=== PATIENT | female | born 1995 | race Caucasian/White ===

== ENCOUNTER 2018-06-28 21:24 | Emergency (ER) | payer OTHER, SELFPAY ==
[2018-06-28 21:35] VITALS: BP 127/73; PULSE 70; RESP 16; TEMP 36.9; O2SAT 100
--- NOTE | 2018-06-28 21:48 | ED.SKABFB ---
HPI - Skin/Abscess/Foreign Bdy General Chief complaint: Skin/Abscess/Foreign Body Stated complaint: hit head on jet, cut Time Seen by Provider: 06/28/18 21:37 Source: patient Mode of arrival: ambulatory Limitations: no limitations History of Present Illness HPI narrative: Otherwise healthy 22-year-old female here for evaluation of scalp laceration. She is active-[employer] and hit her head on a part of the plane. No loss of consciousness. It was bleeding prior to arrival however this has stopped. She is not anything for prior to arrival. Related Data Home Medications Medication Instructions Recorded Confirmed No Known Home Medications 06/28/18 06/28/18 Allergies Allergy/AdvReac Type Severity Reaction Status Date / Time No Known Drug Allergies Allergy Verified 06/28/18 21:38 Review of Systems Constitutional Denies headache(s) Eyes Denies diplopia ENT Ears, Nose, Mouth, and Throat: Denies vertigo, Denies dizziness and Denies headache(s) Integumentary/Breasts Comments: Cut to the scalp Neurologic Denies behavioral changes, Denies vertigo, Denies dizziness and Denies headache(s) Psychiatric Denies behavioral changes Hematologic/Lymphatic Denies easy bleeding and Denies easy bruising PFSH Medical History Healthy adult (Acute) Social History lives independently: Yes Social History lives independently: Yes Exam Initial Vital Signs Initial Vital Signs: Vital Signs Temperature 98.4 F 06/28/18 21:35 Pulse Rate 70 06/28/18 21:35 Respiratory Rate 16 06/28/18 21:35 Blood Pressure 127/73 06/28/18 21:35 Pulse Oximetry 100 06/28/18 21:35 Const General: cooperative, healthy appearing, comfortable, well developed, well groomed and No acute distress HENMT Head: other (2 cm laceration to the scalp) Nose: external nose normal Skin Other: 2 cm laceration to the left parietal/frontal region of the scalp. No active bleeding. Neuro General: alert, awake and oriented x3 Cognition: normal cognition Speech: speech normal Extrem General: capillary refill normal Procedures Laceration Repair Laceration 1: Site: scalp Side (If applicable): left Size (cm): 2 Description: linear Depth: simple, single layer Local Anesthetic: lidocaine 1% and with epi Amount of anesthesia used (mL): 3 Pre-repair: irrigated extensively Skin layer closed with: anjana Number of sutures: 3 Course Vital Signs - 8 hr 06/28/18 21:35 06/28/18 21:57 Temperature 98.4 F Pulse Rate 70 95 H Respiratory Rate 16 18 Blood Pressure 127/73 126/87 Pulse Oximetry 100 100 MDM - Skin/Abscess/Foreign Bdy MDM Narrative Medical decision making narrative: Patient is up-to-date on tetanus. Wound was closed with anjana as described above. Patient is given care instructions return precautions. She expressed understanding and agreement plan. Discharge Plan Departure Patient Disposition: Home Clinical Impression: Laceration of scalp Qualifiers: Encounter type: initial encounter Qualified Code(s): S01.01XA - Laceration without foreign body of scalp, initial encounter Discharge Date/Time: 06/28/18 21:58 Interventions: ED Discharge Assessment Last Done: 06/28/18 21:57 Instructions: DI for Laceration Repair -- [place] Activity Restrictions/Additional Instructions: The anjana do need to be removed in 7-10 days. Your medical department can do this. You can shower like normal you can use soap and water like normal. Be careful with combing your hair. I recommend that you do not wear a cranial for the next 24 hr. After that for the next 48 hr you can wear the cranial if you can cover with the bandage that I provided you with. Return to the emergency department for any new or worsening symptoms Prescriptions: No Action No Known Home Medications RF: 0
[2018-06-28 21:57] VITALS: BP 126/87; PULSE 95; RESP 18; O2SAT 100
== END 2018-06-28 21:58 | disposition home or self-care (01) ==
PROVIDERS: Emergency Provider Emergency Medicine
DX: S01.01XA Laceration without foreign body of scalp, initial encounter (principal)
CPT/HCPCS: 12001; 99282

== ENCOUNTER 2018-08-18 00:39 | Emergency (ER) | payer OTHER, SELFPAY ==
[2018-08-18 00:44] VITALS: BP 126/73; PULSE 87; RESP 18; TEMP 36.4; O2SAT 100; BMI 30.9
[2018-08-18 01:05] VITALS: BP 115/66; PULSE 72; RESP 15; O2SAT 100
[2018-08-18 01:35] VITALS: BP 114/65; PULSE 70; RESP 18; O2SAT 100
--- NOTE | 2018-08-18 01:55 | ED.CHESTPAIN ---
HPI - Chest Pain General Chief Complaint: Chest Pain Stated Complaint: chest pain Time Seen by Provider: 08/18/18 01:55 Source: patient Mode of arrival: ambulatory Limitations: no limitations History of Present Illness HPI narrative: The patient has upper sternal chest pain that has been present for 4 days. She has no fever or cough. She has not been ill. She is not a smoker. 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 She considers herself generally healthy. She has had the pain along the edge of the upper sternum for 4 days. She has no history of cardiac problems. She has no difficulty breathing. She has no weakness or dizziness. She is on no medications, no chronic medical problems. Related Data Previous Rx's Medication Instructions Recorded ibuprofen 600 mg PO Q6-8H PRN #30 tab 08/18/18 Allergies Allergy/AdvReac Type Severity Reaction Status Date / Time No Known Drug Allergies Allergy Verified 06/28/18 21:38 Review of Systems Review of Systems ROS Unobtainable: All systems reviewed & are unremarkable except as noted in HPI and below Constitutional Denies fever(s), Denies lethargy and Denies weakness Cardiovascular Reports as per HPI, Reports chest pain, Denies irregular heart rhythm, Denies lightheadedness, Denies palpitations, Denies dyspnea and Denies orthopnea Respiratory Denies cough, Denies dyspnea and Denies wheezing Gastrointestinal Gastrointestinal: Denies abdominal pain, Denies change in bowel habits, Denies diarrhea, Denies nausea and Denies vomiting Musculoskeletal Denies back pain Integumentary/Breasts Denies erythema, Denies rash and Denies wounds Neurologic Denies weakness Endocrine Denies palpitations Allergic/Immunologic Denies wheezing [facility] Medical History Healthy adult (Acute) Surgical History (Updated 08/18/18 @ 07:15 by Jared Higuera MD) No pertinent past surgical history (Acute) Social History (Updated 08/18/18 @ 07:16 by Jared Higuera MD) lives independently: Yes Smoking Status: Never smoker Social History (Updated 08/18/18 @ 07:16 by Jared Higuera MD) lives independently: Yes Smoking Status: Never smoker Exam Initial Vital Signs Initial Vital Signs: Vital Signs Temperature 97.5 F L 08/18/18 00:44 Pulse Rate 87 08/18/18 00:44 Respiratory Rate 18 08/18/18 00:44 Blood Pressure 126/73 08/18/18 00:44 Pulse Oximetry 100 08/18/18 00:44 Const General: cooperative and well developed Nutritional Appearance: well nourished Orientation: alert, awake, oriented x3 and not confused Neck Neck: normal visual inspection, trachea midline, No lymphadenopathy and No JVD Lymphatic: No lymphedema Chest Other: Palpable tenderness along the right proximal sternum, pain reproduced with palpation and deep breathing. Resp Effort & Inspection: normal respiratory effort and able to speak in complete sentences Auscultation: clear to auscultation bilaterally, no rales, no rhonchi and no wheezes Cardio Rate: regular rate Rhythm: regular rhythm Heart Sounds: no click, no gallops, no murmurs and no rubs Pulses: normal peripheral pulses GI Inspection: non-distended Palpation: soft, no hepatosplenomegaly, No guarding, No pulsatile mass and No tender Auscultation: normal bowel sounds Skin General: no rashes or lesions noted Extrem General: No edema Course Orders Ordered: ED Orders 08/18/18 EKG-12 Lead Stat Discontinued Medications Ibuprofen (Advil) 800 mg PO NOW ONE Stop: 08/18/18 02:24 Last Admin: 08/18/18 02:32 Dose: 800 mg Vital Signs - 8 hr 08/18/18 00:44 08/18/18 01:05 08/18/18 01:35 Temperature 97.5 F L Pulse Rate 87 72 70 Respiratory Rate 18 15 18 Blood Pressure 126/73 Blood Pressure [Left Arm] 115/66 114/65 Pulse Oximetry 100 100 100 08/18/18 02:29 Temperature Pulse Rate 61 Respiratory Rate 19 Blood Pressure Blood Pressure [Left Arm] 105/60 Pulse Oximetry 100 MDM - Chest Pain ECG Data Attestation: I personally reviewed and interpreted this ECG as follows: (Normal sinus rhythm rate 85 beats per minute. No acute ST or T-wave changes. No ectopy. Normal intervals. Normal study.) Discharge Plan Departure Patient Disposition: Home Clinical Impression: Costochondritis Discharge Date/Time: 08/18/18 02:52 Interventions: ED Discharge Assessment Last Done: 08/18/18 02:51 Instructions: Costochondritis Activity Restrictions/Additional Instructions: Motrin every 8 hours as needed for pain. Recheck in your clinic in 1 week if no better. Return here for increasing pain, problems breathing, or feeling weak/dizzy. Prescriptions: New ibuprofen 600 mg tablet 600 mg PO Q6-8H PRN (Reason: pain) Qty: 30 RF: 0
[2018-08-18 02:29] VITALS: BP 105/60; PULSE 61; RESP 19; O2SAT 100
[2018-08-18] MEDS: IBUPROFEN 400 MG TABLET 800 MG PO (02:32)
== END 2018-08-18 02:52 | disposition home or self-care (01) ==
PROVIDERS: Emergency Provider Emergency Medicine
DX: M94.0 Chondrocostal junction syndrome [Tietze] (principal)
CPT/HCPCS: 93005; 93010; 99283